=== PATIENT | male | born 1980 | race Caucasian/White ===

== ENCOUNTER 2019-04-20 09:04 | Day surgery (SDC) | payer BC ==
[~2019-04-20] VITALS: Ht 177.8 cm; Wt 127.7 kg
[2019-04-20] MEDS ORDERED: ZYRTEC 10MG10 MG PO (09:46)
[2019-04-20] MEDS ORDERED: PRILOTC PO (09:46)
[2019-04-20 09:47] VITALS: BP 166/97; PULSE 89; TEMP 98.7
[2019-04-20] MEDS ORDERED: NORCO 325 MG-51 TAB PO ×2 (09:47→12:35)
[2019-04-20] MEDS ORDERED: ADVIL200 MG PO (09:47)
[2019-04-20] MEDS ORDERED: MOTRIN 600600 MG/TAB PO (12:34)
[2019-04-20] MEDS ORDERED: COLACE 100100 MG/CAP PO (12:36)
[2019-04-20 13:38] VITALS: BP 141/94; PULSE 86; TEMP 98.3
--- NOTE | 2019-04-20 13:38 | NUR ---
The patient arrived back to [facility] from the recovery room at this time. The patient appears alert and oriented and reports minimal pain at this time. The patient's friend and golf course designer is at his bedside to help the nurse communicate. The patient agrees to try some apple juice and toast at this time. Post operative vital signs were started at this time. Family brought back to be at his bedside. Will continue to monitor the patient.
[2019-04-20 13:53] VITALS: BP 134/97; PULSE 89
--- NOTE | 2019-04-20 13:53 | NUR ---
The patient appears to tolerating the food and drink well. Vital signs appear stable. Will continue to monitor the patient.
--- NOTE | 2019-04-20 14:01 | NUR ---
The patient was given a PRN dose of Percocet 1 tab as ordered. The patient's family remains at his bedside at this time. Call light is within reach. Will continue to monitor the patient.
[2019-04-20 14:08] VITALS: BP 140/85; PULSE 89
[2019-04-20 14:23] VITALS: BP 135/75; PULSE 87; TEMP 98.3
--- NOTE | 2019-04-20 14:23 | NUR ---
The patient appears to be resting comfortably on the cart at this time. The patient denies any nausea after the pain pill. The patient does report having the hiccups. Will continue to monitor the patient.
[2019-04-20 14:53] VITALS: BP 134/79; PULSE 88
--- NOTE | 2019-04-20 14:55 | NUR ---
Discharge instructions were reviewed with the patient and his family at this time. The patient with the help his his interperter verbalized understanding and has no questions for the nurse at this time. The patient's IV to his right hand was removed and a pressure dressing was applied to the site. The nurse instructed the patient to get dressed and notify the staff when he is ready to be escorted out.
--- NOTE | 2019-04-20 15:10 | NUR ---
The patient was escorted out via wheelchair to a private vehicle by RANDOLPH Gayle. The patient's belongings and discharge paperwork were sent with him. The patient's family is present to drive him home.
== END 2019-04-20 15:10 | disposition home or self-care (01) ==
LOC: EDSEX 09:04 → SDCO 09:04
DX: K42.9 Umbilical hernia without obstruction or gangrene (principal); F17.210 Nicotine dependence, cigarettes, uncomplicated; E66.01 Morbid (severe) obesity due to excess calories; Z68.38 Body mass index [BMI] 38.0-38.9, adult
CPT/HCPCS: C1781; J0360; J0690; J1170; J1885; J2704; J3010; J7120